=== PATIENT | female | born 1970 | race Caucasian/White ===

== ENCOUNTER 2018-03-12 13:58 | Observation (INO) | payer OTHER ==
--- NOTE | ~2018-03-12 | PATH ---
[facility] [address] [place] [address] PATHOLOGY RPT PROCEDURE Name: LESLEY GARCIA Room #: 237-P PING Jimenes M.RKade#: [id number] Admission: 03/12/18 Date of : 66 Discharge: 03/15/18 Report #: [id number] Path Case #: [id number] [facility] Accession Number: [id number] . 01 Material submitted: . PART A: LEFT WEDGE LIVER BIOPSY-FS PART B: RIGHT WEDGE LIVER BIOPSY-FS . 01 Clinical history: . Organ tissue donation . 02 Diagnosis: Left wedge liver biopsy and right wedge liver biopsy: - Benign liver with less than 10% macrovesicular and microvesicular steatosis, no cirrhosis, no "extensive microscopic fibrosis", and no necrosis secondary to hypotension identified. . (SHELBY:vjm;03/17/2018) AGA/03/17/2018 . 02 Electronically signed: . Mir Eugene MD, Pathologist NPI- [id number] . 01 Gross description: . A. Received fresh in a container labeled, "Treasure Bates, wedge biopsy left liver", and consists of a wedge of tory-colored liver tissue measuring approximately 1 x 0.8 cm and ranging in thickness from 0.8 to 0.1 cm, as well as a core of similar appearing tissue measuring approximately 0.8 cm long and averaging 0.2 cm in thickness. All of the specimen is submitted for frozen studies and the remainder of that tissue frozen is submitted in cassette A1. (SHELBY:[facility]; 03/15/2018) . B. Received fresh in a container labeled, "Treasure Bates, wedge biopsy right liver", and consists of a flat segment of tory-colored liver tissue measuring approximately 1 x 1 cm averaging 0.2 cm thick, as well as two similar appearing cores measuring between 1 cm to 1.5 cm in length and each averaging 0.1 cm in diameter. All of the specimen is submitted for frozen section studies and the remainder of that tissue frozen is submitted in cassette B1. . FROZEN SECTION DIAGNOSES: (Zachery Eugene M.D.) . A, B: Left liver and right liver: - Less than 10% macrovesicular and microvesicular steatosis, no cirrhosis, [place] [address] PATHOLOGY RPT PROCEDURE Name: LESLEY GARCIA Room #: 237-P [facility] Yudy M.R.#: [id number] Admission: 03/12/18 Date of : 66 Discharge: 03/15/18 Report #: [id number] Path Case #: [id number] no "extensive microscopic fibrosis", and no necrosis secondary to hypotension identified. . The [facility] form is filled out and released to the transplant team and a dairy supplies sales representative frozen section slide from both specimens is given to the transplant surgeon at his request. . Frozen section performed at [facility], [address] [place] [address] , [place] [address]. . . /QMS . 02 Pathologist provided ICD-10: Z52.6 . 02 CPT . 947226, 858090, 523294, 526766 Specimen Comment: Report sent to Performed at: 01 [facility] [address] [facility] [address], [place], [place] [id number] MD Faraz Estrada MD Phone: [phone] Performed at: 02 [facility] [address], [place], [place] [id number] MD Mir Eugene MD Phone: [phone]
--- NOTE | ~2018-03-12 | HC ---
[facility] [place] [address] CONSULTATION Name: LESLEY GARCIA Room #: 237-P [facility] Yudy Holder#: [id number] Admission: 03/12/18 Attend Phys: [facility] Discharge: 03/15/18 Date of : 66 Report #: [id number] THIS REPORT FOR: //name// CC: SARA unknown [facility] DATE OF SERVICE: 03/13/2018 REASON FOR CONSULTATION: Acute tubular necrosis. HISTORY OF PRESENT ILLNESS: This 47-year-old patient, history of drug abuse and overdoses, had been taking a large amount of methamphetamine, had several cardiorespiratory arrests, was admitted to this hospital on 03/09/2018, treated with acute tubular necrosis and shock, had further arrest, severe metabolic acidosis and rhabdomyolysis. She was eventually declared brain and now readmitted under organ bank for maintenance and for organ retrieval. PAST MEDICAL HISTORY: Previous back surgery and hysterectomy, tubal ligation, previous kidney stones, psychiatric problems, depression. HOME MEDICATIONS: Had included atorvastatin 40 mg daily, bupropion 150 mg b.i.d., clonidine 0.1 mg b.i.d., gabapentin 300 mg t.i.d., Klonopin 0.5 mg t.i.d., Percocet, and ranitidine. FAMILY HISTORY: Noncontributory. REVIEW OF SYSTEMS: Cannot be taken due to the patient's comatose condition. SOCIAL HISTORY: Drug use and abuse, heavy smoker of possibly up to 3 packs per day. PHYSICAL EXAMINATION: GENERAL: Somewhat better than bruised appearing with ecchymoses. SKELETAL: Well-developed, well-nourished, completely comatose and not moving at all. HEENT: Pupils are unreactive. No extraocular movements. NECK: Neck brace in place. CHEST: Showed coarse breath sounds. HEART: Regular. ABDOMEN: Soft and nontender with decreased bowel sounds. EXTREMITIES: Show bruising, ecchymoses and abrasions. CURRENT LABORATORY DATA: Sodium 140, potassium 4.2, chloride 100, bicarbonate 31, creatinine 6.3, BUN 70, calcium is 5.7 with phosphorus 7.5, magnesium 1.6 and albumin of 1.7. [facility] [address] [place] [address] CONSULTATION Name: LESLEY GARCIA ROGE Room #: [facility] Yudy MJayleen#: [id number] Admission: 03/12/18 Attend Phys: [facility] Discharge: 03/15/18 Date of : 66 Report #: [id number] ASSESSMENT AND PLAN: Acute tubular necrosis. The patient has acute kidney injury secondary to acute tubular necrosis secondary to multiple cardiorespiratory arrests and shock. She is virtually anuric. We are maintaining her with IV fluids. Bicarbonate has been added for protection against rhabdomyolysis, but CPK is down and we probably will be able to stop that. I am awaiting current labs for further evaluation including replacement of calcium, magnesium, and bicarbonate. We will continue to try support this patient in an effort to keep her going until organ retrieval can be accomplished. <ELECTRONICALLY SIGNED> By: Sg Maciel MD 03/16/18 [id number] Sg Maciel MD /nt
[2018-03-12 15:48] LABS: HEMATOCRIT 24.2 % (37.0-47.0); HEMOGLOBIN 8.4 gm/dL (12.0-15.0); MCH 32.5 pg (26.0-34.0); MCHC 34.7 g/dL (28.0-37.0); MCV 93.5 fL (80.0-100.0); RBC 2.58 mil/uL (4.20-5.00); WBC 18.5 thou/uL (4.0-11.0)
[2018-03-12 15:49] LABS: PLATELET COUNT 54 thou/uL (150-400)
[2018-03-12 16:10] LABS: URINE BLOOD 3+ (Negative); URINE CLARITY CLEAR; URINE COLOR YELLOW; URINE GLUCOSE-RANDOM* TRACE (Negative); URINE KETONES NEGATIVE (Negative); URINE LEUKOCYTES NEGATIVE (Negative); URINE NITRITE NEGATIVE (Negative); URINE PROTEIN (DIPSTICK) 3+ (Negative); URINE UROBILINOGEN 0.2 E.U./dl (0.2-1.0)
[2018-03-12 16:13] LABS: CREATININE 6.5 mg/dL (0.6-1.0)
[2018-03-12 16:13] LABS: ICTOTEST (BILI CONFIRMATORY) Negative (Negative); URINE BILIRUBIN NEGATIVE (Negative)
[2018-03-12 16:19] LABS: BACTERIA 1-9 Few /HPF (None Seen); CASTS None Seen /LPF (None Seen); CRYSTALS None Seen /LPF (None Seen); SQUAMOUS 0-3 Few /LPF (0-3); URINE RBC 3-10 Few /HPF (0-2); URINE WBC 0-5 Rare /HPF (0-5)
[2018-03-12 16:19] LABS: CALCIUM 5.1 mg/dL (8.5-10.1)
[2018-03-12 16:26] LABS: APTT 27.3 Seconds (24.5-32.8); PROTIME 10.3 Seconds (9.3-11.4)
[2018-03-12 16:28] LABS: ALBUMIN 1.7 g/dL (3.4-5.0); DIRECT BILIRUBIN 0.2 mg/dL (<0.1-0.3); MAGNESIUM 1.6 mg/dL (1.8-2.4); PHOSPHORUS 7.1 mg/dL (2.5-4.9); TOTAL BILIRUBIN 0.5 mg/dL (<0.1-1.0); TOTAL PROTEIN 4.5 g/dL (6.4-8.2)
[2018-03-12 16:29] LABS: TROPONIN-I 0.89 ng/mL (<0.06)
[2018-03-12 16:31] LABS: FIBRINOGEN 541.8 mg/dL (210-360)
[2018-03-12 16:44] LABS: ABSOLUTE NEUTROPHILS 16.7 thou/uL (1.4-8.2)
[2018-03-12 20:11] LABS: BE(vivo) 2.8 mmol/L (-2 to +3); HCO3 26.4 mmol/L (22.0-26.0); PCO2 36.4 mmHg (35.0-45.0); PO2 420.2 mmHg (80.0-100.0); pH 7.479 (7.360-7.450)
[2018-03-12 20:12] LABS: sO2 99.9 % (92.0-98.0)
[2018-03-12 23:06] LABS: HEMATOCRIT 23.9 % (37.0-47.0); HEMOGLOBIN 8.3 gm/dL (12.0-15.0); MCH 32.9 pg (26.0-34.0); MCHC 34.8 g/dL (28.0-37.0); MCV 94.4 fL (80.0-100.0); RBC 2.54 mil/uL (4.20-5.00); RDW 13.3 % (10.5-14.5); WBC 18.9 thou/uL (4.0-11.0)
[2018-03-12 23:06] LABS: pH 7.474 (7.360-7.450)
[2018-03-12 23:07] LABS: BE(vivo) 5.4 mmol/L (-2 to +3); HCO3 29.5 mmol/L (22.0-26.0); PCO2 41.1 mmHg (35.0-45.0); PO2 347.4 mmHg (80.0-100.0); sO2 99.8 % (92.0-98.0)
[2018-03-12 23:20] LABS: APTT 26.6 Seconds (24.5-32.8); PROTIME 10.6 Seconds (9.3-11.4)
[2018-03-12 23:35] LABS: ALBUMIN 1.7 g/dL (3.4-5.0); CREATININE 6.3 mg/dL (0.6-1.0); MAGNESIUM 1.6 mg/dL (1.8-2.4); PHOSPHORUS 7.5 mg/dL (2.5-4.9); POTASSIUM 4.2 mmol/L (3.5-5.1); TOTAL PROTEIN 5.1 g/dL (6.4-8.2)
[2018-03-12 23:50] LABS: PO2 77.2 mmHg (80.0-100.0)
[2018-03-12 23:51] LABS: BE(vivo) 2.4 mmol/L (-2 to +3); sO2 92.6 % (92.0-98.0)
[2018-03-12 23:59] LABS: ABSOLUTE NEUTROPHILS 18.3 thou/uL (1.4-8.2); METAMYELOCYTES 1 %
[2018-03-13] LABS: ANISOCYTOSIS 1+; POLYCHROMASIA OCCASIONAL
[2018-03-13 00:01] LABS: PLATELET COUNT 50 thou/uL (150-400)
[2018-03-13 00:04] LABS: CALCIUM 5.7 mg/dL (8.5-10.1); TROPONIN-I 1.08 ng/mL (<0.06)
[2018-03-13 07:24] LABS: APTT 25.7 Seconds (24.5-32.8); PROTIME 10.3 Seconds (9.3-11.4)
[2018-03-13 07:25] LABS: AMYLASE 80 U/L (25-115)
[2018-03-13 07:29] LABS: FIBRINOGEN 496.5 mg/dL (210-360)
[2018-03-13 07:34] LABS: ALBUMIN 1.7 g/dL (3.4-5.0); ANION GAP 10 mmol/L (7-16); BUN 76 mg/dL (7-18); CALCIUM 6.3 mg/dL (8.5-10.1); CHLORIDE 100 mmol/L (98-107); CO2 31 mmol/L (21-32); CREATININE 6.6 mg/dL (0.6-1.0); GGTP 75 U/L (5-55); GLUCOSE 152 mg/dL (74-106); LIPASE 251 U/L (73-393); MAGNESIUM 1.9 mg/dL (1.8-2.4); PHOSPHORUS 8.2 mg/dL (2.5-4.9); POTASSIUM 4.5 mmol/L (3.5-5.1); SGPT 372 U/L (30-65); SODIUM 141 mmol/L (136-145); TOTAL PROTEIN 5.1 g/dL (6.4-8.2)
[2018-03-13 07:43] LABS: TROPONIN-I 0.94 ng/mL (<0.06)
[2018-03-13 08:40] LABS: MICROCYTES 1+
[2018-03-13 08:44] LABS: CORRECTED WBC 18.8 thou/uL (4.0-11.0); HEMATOCRIT 23.2 % (37.0-47.0); MCH 32.4 pg (26.0-34.0); MCHC 34.5 % (28.0-37.0); MCV 94.1 fL (80.0-100.0); PLATELET COUNT 53 thou/uL (150-400); RBC 2.46 mil/uL (4.20-5.00); RDW 12.9 % (10.5-14.5); WBC 18.8 thou/uL (4.0-11.0)
[2018-03-13 13:18] LABS: BE(vivo) 4.6 mmol/L (-2 to +3); HCO3 29.3 mmol/L (22.0-26.0); PCO2 44.3 mmHg (35.0-45.0); PO2 280.9 mmHg (80.0-100.0); pH 7.438 (7.360-7.450); sO2 99.7 % (92.0-98.0)
[2018-03-13 15:03] LABS: BE(vivo) 4.7 mmol/L (-2 to +3); HCO3 29.7 mmol/L (22.0-26.0); PCO2 46.7 mmHg (35.0-45.0); pH 7.422 (7.360-7.450); sO2 99.8 % (92.0-98.0)
[2018-03-13 15:18] LABS: HEMATOCRIT 22.9 % (37.0-47.0); HEMOGLOBIN 7.9 gm/dL (12.0-15.0); MCH 32.4 pg (26.0-34.0); MCHC 34.5 g/dL (28.0-37.0); MCV 93.8 fL (80.0-100.0); RBC 2.45 mil/uL (4.20-5.00); RDW 13.1 % (10.5-14.5); WBC 17.3 thou/uL (4.0-11.0)
[2018-03-13 15:23] LABS: PLATELET COUNT 57 thou/uL (150-400)
[2018-03-13 15:34] LABS: CALCIUM 6.2 mg/dL (8.5-10.1); CREATININE 6.9 mg/dL (0.6-1.0); POTASSIUM 4.1 mmol/L (3.5-5.1)
[2018-03-13 15:39] LABS: APTT 25.7 Seconds (24.5-32.8); FIBRINOGEN 490.4 mg/dL (210-360); PROTIME 10.1 Seconds (9.3-11.4)
[2018-03-13 15:46] LABS: ALBUMIN 1.7 g/dL (3.4-5.0); DIRECT BILIRUBIN 0.1 mg/dL (<0.1-0.3); MAGNESIUM 2.3 mg/dL (1.8-2.4); PHOSPHORUS 8.5 mg/dL (2.5-4.9); TOTAL BILIRUBIN 0.4 mg/dL (<0.1-1.0); TOTAL PROTEIN 5.2 g/dL (6.4-8.2)
[2018-03-13 15:48] LABS: TROPONIN-I 0.74 ng/mL (<0.06)
[2018-03-13 15:57] LABS: ABSOLUTE NEUTROPHILS 16.3 thou/uL (1.4-8.2); PLATELET ESTIMATE MARKEDLY DECREASED
[2018-03-13 21:00] VITALS: BP 137/86
[2018-03-13 21:15] VITALS: BP 137/86
[2018-03-13 21:30] VITALS: BP 138/86
[2018-03-13 21:45] VITALS: BP 138/86
[2018-03-13 22:00] VITALS: BP 136/85
[2018-03-14 00:27] LABS: BE(vivo) 4.4 mmol/L (-2 to +3); HCO3 28.7 mmol/L (22.0-26.0); PCO2 41.5 mmHg (35.0-45.0); PO2 328.4 mmHg (80.0-100.0); pH 7.457 (7.360-7.450); sO2 99.8 % (92.0-98.0)
[2018-03-14 01:31] LABS: MCH 31.9 pg (26.0-34.0); MCHC 33.7 g/dL (28.0-37.0); MCV 94.7 fL (80.0-100.0); PLATELET COUNT 66 thou/uL (150-400); WBC 13.7 thou/uL (4.0-11.0)
[2018-03-14 01:35] LABS: AMYLASE 74 U/L (25-115)
[2018-03-14 01:49] LABS: ALBUMIN 1.4 g/dL (3.4-5.0); ANION GAP 10 mmol/L (7-16); BUN 89 mg/dL (7-18); CHLORIDE 101 mmol/L (98-107); CO2 30 mmol/L (21-32); CREATININE 7.2 mg/dL (0.6-1.0); DIRECT BILIRUBIN 0.1 mg/dL (<0.1-0.3); GGTP 69 U/L (5-55); GLUCOSE 158 mg/dL (74-106); LIPASE 257 U/L (73-393); MAGNESIUM 2.2 mg/dL (1.8-2.4); PHOSPHORUS 8.6 mg/dL (2.5-4.9); POTASSIUM 4.6 mmol/L (3.5-5.1); SGOT 479 U/L (15-37); SGPT 299 U/L (30-65); SODIUM 141 mmol/L (136-145); TOTAL BILIRUBIN 0.3 mg/dL (<0.1-1.0); TOTAL PROTEIN 4.4 g/dL (6.4-8.2); TROPONIN-I 0.47 ng/mL (<0.06)
[2018-03-14 01:55] LABS: HEMOGLOBIN 6.1 gm/dL (12.0-15.0)
[2018-03-14 02:00] LABS: APTT 26.2 Seconds (24.5-32.8); PROTIME 10.7 Seconds (9.3-11.4)
[2018-03-14 02:51] LABS: ABSOLUTE NEUTROPHILS 11.4 thou/uL (1.4-8.2); ANISOCYTOSIS 1+; METAMYELOCYTES 1 %; NUCLEATED RBCS 1 /100WBC
[2018-03-14 02:52] LABS: POLYCHROMASIA OCCASIONAL
[2018-03-14 03:06] VITALS: BP 118/77; BP 128/84
[2018-03-14 03:51] VITALS: BP 127/83; BP 128/84; BP 130/84
[2018-03-14 04:40] LABS: HEMOGLOBIN 6.6 gm/dL (12.0-15.0)
[2018-03-14 04:41] LABS: MCH 31.3 pg (26.0-34.0); MCHC 34.7 g/dL (28.0-37.0); MCV 90.1 fL (80.0-100.0); RBC 2.1 mil/uL (4.20-5.00); RDW 16.2 % (10.5-14.5); WBC 14.6 thou/uL (4.0-11.0)
[2018-03-14 04:54] LABS: HEMATOCRIT 18.9 % (37.0-47.0)
[2018-03-14 05:40] VITALS: BP 134/85; BP 138/88; BP 144/92
[2018-03-14 06:43] LABS: BE(vivo) 1.9 mmol/L (-2 to +3); PCO2 38.4 mmHg (35.0-45.0); PO2 261.8 mmHg (80.0-100.0); pH 7.448 (7.360-7.450); sO2 99.6 % (92.0-98.0)
[2018-03-14 06:53] LABS: HEMATOCRIT 23.5 % (37.0-47.0); HEMOGLOBIN 8.2 gm/dL (12.0-15.0)
[2018-03-14 07:05] LABS: CALCIUM 6.1 mg/dL (8.5-10.1); CREATININE 7.2 mg/dL (0.6-1.0); POTASSIUM 4.6 mmol/L (3.5-5.1)
[2018-03-14 09:43] LABS: APTT 24.8 Seconds (24.5-32.8); FIBRINOGEN 391.4 mg/dL (210-360); INR 1.1; PROTIME 10.8 Seconds (9.3-11.4)
[2018-03-14 10:11] LABS: ALBUMIN 1.7 g/dL (3.4-5.0); DIRECT BILIRUBIN 0.1 mg/dL (<0.1-0.3); TOTAL BILIRUBIN 0.4 mg/dL (<0.1-1.0); TOTAL PROTEIN 4.8 g/dL (6.4-8.2)
[2018-03-14 13:10] LABS: HEMATOCRIT 22.6 % (37.0-47.0); MCH 31.3 pg (26.0-34.0); MCHC 35.4 g/dL (28.0-37.0); MCV 88.6 fL (80.0-100.0); PLATELET COUNT 96 thou/uL (150-400); RBC 2.56 mil/uL (4.20-5.00); RDW 15.9 % (10.5-14.5)
[2018-03-14 13:22] LABS: FIBRINOGEN 399.6 mg/dL (210-360); PROTIME 10.6 Seconds (9.3-11.4)
[2018-03-14 13:23] LABS: BE(vivo) 3.2 mmol/L (-2 to +3); HCO3 27.2 mmol/L (22.0-26.0); PCO2 38.8 mmHg (35.0-45.0); PO2 257.7 mmHg (80.0-100.0); pH 7.463 (7.360-7.450); sO2 99.6 % (92.0-98.0)
[2018-03-14 13:27] LABS: ALBUMIN 1.7 g/dL (3.4-5.0); CALCIUM 6.1 mg/dL (8.5-10.1); CREATININE 7.4 mg/dL (0.6-1.0); DIRECT BILIRUBIN 0.2 mg/dL (<0.1-0.3); MAGNESIUM 2.2 mg/dL (1.8-2.4); PHOSPHORUS 8.5 mg/dL (2.5-4.9); POTASSIUM 4.7 mmol/L (3.5-5.1); TOTAL BILIRUBIN 0.5 mg/dL (<0.1-1.0); TOTAL PROTEIN 4.8 g/dL (6.4-8.2)
[2018-03-14 13:39] LABS: ABSOLUTE NEUTROPHILS 12.6 thou/uL (1.4-8.2)
[2018-03-14 17:06] LABS: URINE BILIRUBIN NEGATIVE (Negative); URINE BLOOD 3+ (Negative); URINE CLARITY CLEAR; URINE COLOR YELLOW; URINE GLUCOSE-RANDOM* TRACE (Negative); URINE KETONES NEGATIVE (Negative); URINE LEUKOCYTES NEGATIVE (Negative); URINE NITRITE NEGATIVE (Negative); URINE PROTEIN (DIPSTICK) 3+ (Negative); URINE UROBILINOGEN 0.2 E.U./dl (0.2-1.0)
[2018-03-14 17:14] LABS: CASTS None Seen /LPF (None Seen); RENAL EPITHELIAL CELLS 0-3 Few /LPF (None Seen); SQUAMOUS 0-3 Few /LPF (0-3); URINE WBC 6-15 Few /HPF (0-5)
[2018-03-14 17:15] LABS: BACTERIA None Seen /HPF (None Seen); CRYSTALS None Seen /LPF (None Seen)
[2018-03-14 17:22] LABS: AMYLASE 96 U/L (25-115); LIPASE 308 U/L (73-393)
[2018-03-14 18:57] LABS: HEMATOCRIT 22.7 % (37.0-47.0); MCH 31.3 pg (26.0-34.0); MCHC 35.1 g/dL (28.0-37.0); MCV 89.4 fL (80.0-100.0); PLATELET COUNT 99 thou/uL (150-400); RBC 2.54 mil/uL (4.20-5.00); WBC 14.3 thou/uL (4.0-11.0)
[2018-03-14 19:11] LABS: AMYLASE 97 U/L (25-115); LIPASE 351 U/L (73-393)
[2018-03-14 19:13] LABS: BE(vivo) 1.6 mmol/L (-2 to +3); HCO3 25.7 mmol/L (22.0-26.0); PCO2 38.3 mmHg (35.0-45.0); PO2 277.1 mmHg (80.0-100.0); pH 7.445 (7.360-7.450); sO2 99.7 % (92.0-98.0)
[2018-03-14 20:00] LABS: ABSOLUTE NEUTROPHILS 11.9 thou/uL (1.4-8.2)
[2018-03-14 21:24] LABS: CALCIUM 6.1 mg/dL (8.5-10.1); CREATININE 7.5 mg/dL (0.6-1.0); POTASSIUM 4.9 mmol/L (3.5-5.1)
[2018-03-14 21:26] LABS: APTT 23.9 Seconds (24.5-32.8); FIBRINOGEN 408.2 mg/dL (210-360); PROTIME 10.6 Seconds (9.3-11.4)
[2018-03-14 21:35] LABS: ALBUMIN 1.7 g/dL (3.4-5.0); DIRECT BILIRUBIN 0.2 mg/dL (<0.1-0.3); MAGNESIUM 2.3 mg/dL (1.8-2.4); TOTAL BILIRUBIN 0.5 mg/dL (<0.1-1.0)
[2018-03-15 00:29] LABS: HEMATOCRIT 22.8 % (37.0-47.0); MCH 31.3 pg (26.0-34.0); MCHC 34.9 g/dL (28.0-37.0); MCV 89.7 fL (80.0-100.0); PLATELET COUNT 100 thou/uL (150-400); RBC 2.54 mil/uL (4.20-5.00); RDW 15.9 % (10.5-14.5); WBC 13.8 thou/uL (4.0-11.0)
[2018-03-15 00:46] LABS: ALBUMIN 1.8 g/dL (3.4-5.0); CREATININE 7.5 mg/dL (0.6-1.0); DIRECT BILIRUBIN 0.2 mg/dL (<0.1-0.3); MAGNESIUM 2.3 mg/dL (1.8-2.4); PHOSPHORUS 8.9 mg/dL (2.5-4.9); POTASSIUM 4.9 mmol/L (3.5-5.1); TOTAL BILIRUBIN 0.6 mg/dL (<0.1-1.0)
[2018-03-15 01:01] LABS: FIBRINOGEN 435.8 mg/dL (210-360); PROTIME 10.7 Seconds (9.3-11.4)
[2018-03-15 01:32] LABS: ABSOLUTE NEUTROPHILS 11.5 thou/uL (1.4-8.2); METAMYELOCYTES 1 %
[2018-03-16 00:06] LABS: GLYCOHEMOGLOBIN (HGB A1C) 6.3 % (4.8-5.6)
[2018-03-16 07:42] LABS: BE(vivo) 0.4 mmol/L (-2 to +3); HCO3 24.3 mmol/L (22.0-26.0); PCO2 36.3 mmHg (35.0-45.0); PO2 324.1 mmHg (80.0-100.0); sO2 99.8 % (92.0-98.0)
== END 2018-03-15 07:38 ==
LOC: ICU 13:58
DX: N17.0 Acute kidney failure with tubular necrosis (principal); R57.9 Shock, unspecified; I46.9 Cardiac arrest, cause unspecified; E87.2 Acidosis; M62.82 Rhabdomyolysis; F17.210 Nicotine dependence, cigarettes, uncomplicated; Z90.710 Acquired absence of both cervix and uterus; Z52.9 Donor of unspecified organ or tissue
CPT/HCPCS: 50101; 50554; 51046; 56524; 56526; 56527; 56668; 57103; 62110; 62900; 88010; 88011; 88015; 88016; 88017